=== PATIENT | female | born 1990 | race Caucasian/White ===

== ENCOUNTER 2023-12-01 13:29 | Outpatient (CLI) | payer BC ==
[~2023-12-01] VITALS: Ht 170.2 cm; Wt 129.1 kg
--- NOTE | 2023-12-01 13:35 | NUR ---
PT TRANSPORTED VIA WHEELCHAIR TO LR1 WITH SPOUSE. PT SENT OVER FROM OFFICE FOR NOT HAVING ACCELERATIONS IN NST. PT ALSO COMPLAINING OF VOMITTING, BODY ACHES, AND FEVER THIS MORNING. PT CHANGED INTO CLEAN GOWN. FHR MONITOR/TOCO APPLIED. PT DENIES ANY CONTRACTIONS, LEAKING OF FLUID, OR VAGINAL BLEEDING. PT REPORTS GOOD MOVEMENT.
[2023-12-01 14:08] VITALS: BP 115/64; PULSE 100; TEMP 98.7
[2023-12-01] MEDS ORDERED: LR 1,000 ML IV PRN (14:15)
== END 2023-12-01 15:25 | disposition home or self-care (01) ==
LOC: LDRO 13:29
DX: O21.2 Late vomiting of pregnancy (principal); R50.9 Fever, unspecified; Z3A.34 34 weeks gestation of pregnancy
CPT/HCPCS: J7120

== ENCOUNTER 2023-12-04 03:41 | Inpatient (IN) | payer BC ==
[~2023-12-04] VITALS: Ht 170.2 cm; Wt 129.1 kg
[2023-12-04] VITALS (10 sets, daily range): BP systolic 104–142; BP diastolic 61–87; PULSE 60–82; TEMP 97.7–98.5
--- NOTE | 2023-12-04 03:45 | NUR ---
PATIENT AMBULATORY TO UNIT WITH SPOUSE STATING HER WATER BROKE AT 0245 CLEAR FLUID. PATIENT DENIES CONTRACTIONS OR VAGINAL BLEEDING. AMNIOSWAB POSITIVE. SVE NOTED. [id number]
[2023-12-04] MEDS ORDERED: LR 1,000 ML IV PRN (04:00)
[2023-12-04] MEDS ORDERED: LEVOXYL0.15 MG PO (04:14)
[2023-12-04] MEDS ORDERED: ASPIRIN 81M81 MG/TA2 PO (04:16)
[2023-12-04] MEDS ORDERED: NOVOLIN N100 U/ML SQ (06:28)
[2023-12-04] MEDS ORDERED: NOVOLOG 100U100 U/M1 (06:30)
[2023-12-04] MEDS ORDERED: LR 1,000 ML IV SCH (07:15)
[2023-12-04 07:28] LABS: HEMOGLOBIN 12.2 g/dl (12.5-16.0); MEAN CELL VOLUME 87 fl (80.0-100.0); MEAN CORPUSCULAR HEMOGLOBIN 30 pg (27-31); MEAN CORPUSCULAR HGB CONC 35 g/dl (33.0-37.0); MEAN PLATELET VOLUME 10.9 fl (7.4-10.4); PLATELET COUNT 220 K/mm3 (130-400); RED BLOOD COUNT 4.07 M/mm3 (4.10-5.30); REDCELL DISTRIBUTION WIDTH-CV 13.9 % (11.5-14.5)
[2023-12-04 07:29] LABS: HEMATOCRIT 35.4 % (37.0-47.0)
[2023-12-04] MEDS ORDERED: Betamethasone Acetate/Na Phos 6 MG/ML 5 ML MDV IM SCH (07:30)
[2023-12-04] MEDS ORDERED: NS Flush 25 ML IV Bag IV PRN (07:30)
--- NOTE | 2023-12-04 08:06 | NUR ---
0740 ALANNA BEDSIDE DISCUSSING POC WITH PT AND SCANNING FOR PRESENTATION
[2023-12-04 08:12] LABS: BAND 11 % (0-10); LYMPHOCYTE 17 % (20.0-51.0); NEUTROPHILS 65 % (42.0-75.2); PLATELET ESTIMATE NORMAL (NORMAL)
--- NOTE | 2023-12-04 08:39 | NUR ---
0700 Sridevi JOSE updated on pt of his in triage, SROM at 0245 this AM, RN unsure of presentation, FHTs, ctx pattern, GBS status unknown, no admit orders given from MD distribution clerk overnight. Orders to admit patient, start clindamycin 900 per protocol due to patient's penicillin allergy/severity of reaction, send standard CBC/type & screen, give dose of beta now. states he will be on unit shortly to evaluate. YNES BRUGESSVO
--- NOTE | 2023-12-04 11:05 | NUR ---
RN DISCUSSES POC WITH PT, PT VERBALIZES UNDERSTANDING AT THIS TIME
--- NOTE | 2023-12-04 11:40 | NUR ---
1030 RN gives report to transport team RN at this time.
== END 2023-12-04 10:50 | disposition critical access hospital (66) | DRG 832 ==
LOC: LDRO 03:41 → LDR 03:51 → LDRO 07:09 → LDR 07:10
PROVIDERS: ADMIT Obstetrics & Gynecology
DX: O42.013 Preterm premature rupture of membranes, onset of labor within 24 hours of rupture, third trimester (principal); O24.913 Unspecified diabetes mellitus in pregnancy, third trimester; Z3A.34 34 weeks gestation of pregnancy; O99.213 Obesity complicating pregnancy, third trimester; E06.3 Autoimmune thyroiditis; O99.283 Endocrine, nutritional and metabolic diseases complicating pregnancy, third trimester; O43.103 Malformation of placenta, unspecified, third trimester; G43.909 Migraine, unspecified, not intractable, without status migrainosus; O34.03 Maternal care for unspecified congenital malformation of uterus, third trimester; Q51.3 Bicornate uterus
CPT/HCPCS: J0702; J0737; J7120